=== PATIENT | male | born 1970 | race Caucasian/White ===

== ENCOUNTER 2017-06-24 07:35 | Emergency (ER) | payer BC ==
--- NOTE | 2017-06-24 09:34 | EDM.PDOC ---
ED HPI GENERAL MEDICAL PROBLEM - General Chief Complaint: Cardiovascular Problem Stated Complaint: RAPID HEART RATE Time Seen by Provider: 06/24/17 07:46 Source of Information: Reports: Patient, RN Notes Reviewed - History of Present Illness INITIAL COMMENTS - FREE TEXT/NARRATIVE: 7-year-old male has been sent over from cardiac stress lab for just going through the first part of his cardiac stress test this morning. Dr. Chang called over, his heart rate has been slow to come down still in the 120s resting. He would like to have him evaluated, appropriate labs checked. He was not having any chest pain or difficulty breathing. On arrival to ED continues pain-free. Heart rate now down to about 106-110. He does smoke. He has no known cardiac history. Is not diabetic. Not had anything to eat or drink at this morning so does feel somewhat dehydrated. He just had labs at the clinic here about a week ago. He is not aware of anything being abnormal. No recent cough fever chills vomiting or diarrhea. He has been having frequent palpitations this past several weeks and that is the reason for the current cardiac stress test. He feels like his heart "stops or skipping beats more frequent at night when trying to sleep. - Related Data Allergies Allergy/AdvReac Type Severity Reaction Status Date / Time No Known Allergies Allergy Verified 06/24/17 07:45 Home Meds: Home Meds Hydrochlorothiazide 25 mg PO DAILY 06/24/17 [History] LORazepam [Ativan] 1 mg PO QPM PRN 06/24/17 [History] PARoxetine [Paxil CR] 12.5 mg PO DAILY 06/24/17 [History] Pravastatin Sodium 10 mg PO DAILY 06/24/17 [History] Testosterone Cypionate [Testosterone Cypionate] 2 ml IM ASDIRECTED 06/24/17 [ History] Past Medical History HEENT History: Reports: Impaired Vision Cardiovascular History: Reports: High Cholesterol Gastrointestinal History: Reports: GERD - Past Surgical History HEENT Surgical History: Reports: Adenoidectomy Neurological Surgical History: Reports: Spinal Fusion Social & Family History - Tobacco Use Smoking Status *Q: Current Every Day Smoker Years of Tobacco use: 20 Packs/Tins Daily: 0.5 - Caffeine Use Caffeine Use: Reports: Coffee, Energy Drinks - Recreational Drug Use Recreational Drug Use: No ED ROS GENERAL - Review of Systems Review Of Systems: See Below Constitutional: Denies: Fever, Chills, Diaphoresis HEENT: Denies: Throat Pain, Throat Swelling Respiratory: Denies: Shortness of Breath, Pleuritic Chest Pain, Cough Cardiovascular: Reports: Palpitations. Denies: Chest Pain GI/Abdominal: Denies: Abdominal Pain, Diarrhea, Nausea, Vomiting Musculoskeletal: Denies: Neck Pain, Shoulder Pain, Arm Pain, Back Pain Skin: Reports: No Symptoms Neurological: Reports: Dizziness (Gone) ED EXAM, GENERAL - Physical Exam Exam: See Below General Appearance: Alert, No Apparent Distress Eye Exam: Bilateral Eye: PERRL Throat/Mouth: Normal Inspection, Normal Oropharynx Head: Atraumatic. No: Facial Swelling Neck: Supple, Full Range of Motion Respiratory/Chest: No Respiratory Distress, Lungs Clear, Normal Breath Sounds Cardiovascular: Regular Rate, Rhythm, Tachycardia, Other (Heart rate 105-107 at time of my initial exam, 113 on arrival to ED) GI/Abdominal: Soft, Non-Tender Back Exam: No: CVA Tenderness (L), CVA Tenderness (R) Extremities: Normal Inspection, Normal Range of Motion Neurological: Alert, Oriented, No Motor/Sensory Deficits Skin Exam: Warm, Dry, Normal Color Course - Vital Signs Last Recorded V/S: Last Vital Signs Temp 97.4 F 06/24/17 07:40 Pulse 113 H 06/24/17 07:40 Resp 13 06/24/17 07:40 BP 134/96 H 06/24/17 07:40 Pulse Ox 98 06/24/17 07:40 - Orders/Labs/Meds Orders: Active Orders 24 hr Category Date Time Status EKG 12 Lead [EKG Documentation Completion] [RC] STAT Care 06/24/17 07:47 Active Labs: Laboratory Tests 06/24/17 Range/Units 07:58 TSH 3rd Generation 1.500 (0.358-3.74) uIU/mL - Re-Assessments/Exams Free Text/Narrative Re-Assessment/Exam: 06/24/17 16:50. TSH came back normal. Heart rate continued to slow down. On reexam prior to discharge his heart rate was down into the 90s. He continued to have no chest discomfort whatsoever. I did not repeat other labs. He had labs done the clinic quite recently and mistreats were all normal. As described in history of present illness his recent symptomatology leading up to the cardiac stress exam was escalating palpitations, sensation of his heart skipping beats. During his stress test there were some PVCs noted. Not been seen those here in the ED. Not been having symptoms of that while here in the ED. He did feel up to going home at time of discharge. Discharge instructions as documented. Departure - Departure Time of Disposition: 09:30 Disposition: Home, Self-Care 01 Condition: Fair Clinical Impression: Palpitations, Sinus tachycardia Instructions: Sinus Tachycardia, Palpitations, [id number] Referrals: Kenna De La Cruz [facility] [Primary Care Provider] - Forms: ED Department Discharge Additional Instructions: Continue to drink plenty of water to get rehydrated, the extra beats and skipping of your heart that you are describing are called premature ventricular contractions. Your one cup of coffee in the morning should be fine but avoid further caffeine. Try eat a healthy diet, regular exercise program, try stop smoking. Try get plenty of rest at night as best you can. Start metoprolol 25 mg twice daily. That should reduce the frequency of the heart palpitations. Follow-up clinic in about 4-5 days for cardiac stress results, further treatment as needed. - My Orders Last 24 Hours: My Active Orders 06/24/17 07:47 EKG 12 Lead [EKG Documentation Completion] [RC] STAT - Assessment/Plan Last 24 Hours: My Active Orders 06/24/17 07:47 EKG 12 Lead [EKG Documentation Completion] [RC] STAT
== END 2017-06-24 09:45 | disposition home or self-care (01) ==
LOC: SUPCPDRO 07:35 → JD.ED 07:35
DX: R00.2 Palpitations (principal); R00.0 Tachycardia, unspecified; E78.00 Pure hypercholesterolemia, unspecified; K21.9 Gastro-esophageal reflux disease without esophagitis; F17.210 Nicotine dependence, cigarettes, uncomplicated; Z79.899 Other long term (current) drug therapy
CPT/HCPCS: 36415; 84443; 93005; 99284; 99285-25

== ENCOUNTER 2018-10-22 18:02 | Emergency (ER) | payer BC ==
[2018-10-22] MEDS ORDERED: Sodium Chloride 0.9% 1,000 ML IV ONE (18:41)
[2018-10-22] MEDS ORDERED: HYDROmorphone 0.5 MG/0.5 ML Syringe IVPUSH ONE ×2 (18:41→21:03)
[2018-10-22] MEDS ORDERED: Sodium Chloride 0.9% 10 ML Syringe FLUSH PRN (18:42)
--- NOTE | 2018-10-22 19:04 | EDM.PDOC ---
ED HPI GENERAL MEDICAL PROBLEM - General Chief Complaint: Abdominal Pain Stated Complaint: STOMACH PAIN Time Seen by Provider: 10/22/18 18:23 Source of Information: Reports: Patient History Limitations: Reports: No Limitations - History of Present Illness INITIAL COMMENTS - FREE TEXT/NARRATIVE: 48-year-old male presents for evaluation and treatment of left lower quadrant abdominal pain. Patient reports that this first started about a week ago. He states that it improved and now for the last day has return is worse than normal. He is reporting pain to the left lower quadrant. Currently rates the pain as a for 5 out of 10. He states that he did have some bright red blood in his stools earlier this week. He reports associated symptoms of feeling bloated and chills. He states his stomach "feels tight ". He denies any fevers, nausea, vomiting, diarrhea, lightheadedness, dizziness or syncope. He states that he has continued pass gas. States he has a history of diverticulitis but states this is worse than normal. Reports any movement seems to greatly exacerbate the pain. His last colonoscopy was in either April or May which showed diverticula. No previous surgeries to his abdomen. PCP is Dr. Gray. Left Lower Abdomen Pain Score (Numeric/FACES): 5 - Related Data Allergies Allergy/AdvReac Type Severity Reaction Status Date / Time No Known Allergies Allergy Verified 03/09/18 12:46 Home Meds: Home Meds Cholecalciferol (Vitamin D3) [Vitamin D3] 1,000 units PO DAILY 11/26/17 [History ] Cyanocobalamin (Vitamin B-12) [Vitamin B-12] 1,000 mcg PO DAILY 11/26/17 [ History] Hemp Oil 100 mg PO DAILY 11/26/17 [History] Magnesium Oxide [Magnesium] 400 mg PO ASDIRECTED 11/26/17 [History] Metoprolol Succinate 100 mg PO DAILY 11/26/17 [History] Potassium Chloride 20 meq PO DAILY 11/26/17 [History] Testosterone Cypionate [Depo-Testosterone] 2 ml IM ASDIRECTED 11/26/17 [History] hydroCHLOROthiazide [Hydrochlorothiazide] 25 mg PO DAILY 11/26/17 [History] rOPINIRole [Requip] 0.5 mg PO BEDTIME 11/26/17 [History] Pantoprazole [ProTONIX] 40 mg PO DAILY #30 tab.cr 11/28/17 [Rx] Acetaminophen/oxyCODONE [Percocet 325-5 MG] 1 tab PO Q4HR PRN #20 tab 10/22/18 [ Rx] Levofloxacin [Levaquin] 750 mg PO DAILY #10 tablet 10/22/18 [Rx] metroNIDAZOLE [Flagyl] 500 mg PO Q8H #30 tab 10/22/18 [Rx] Past Medical History HEENT History: Reports: Impaired Vision Cardiovascular History: Reports: High Cholesterol, Other (See Below) Other Cardiovascular History: PVC'S-freq. 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 Endocrine/Metabolic History: Reports: None Hematologic History: Reports: None Immunologic History: Reports: None Oncologic (Cancer) History: Reports: None Dermatologic History: Reports: None - Infectious Disease History Infectious Disease History: Reports: Chicken Pox - Past Surgical History HEENT Surgical History: Reports: Adenoidectomy Neurological Surgical History: Reports: Spinal Fusion Social & Family History - Family History Family Medical History: Noncontributory - Tobacco Use Smoking Status *Q: Current Every Day Smoker Years of Tobacco use: 20 Packs/Tins Daily: 1 - Caffeine Use Caffeine Use: Reports: Coffee Other Caffeine Use: cup of coffee and monster drink everyday - Recreational Drug Use Recreational Drug Use: No - Living Situation & Occupation Living situation: Reports: Occupation: Employed ED ROS GENERAL - Review of Systems Review Of Systems: See Below Constitutional: Reports: Chills. Denies: Fever GI/Abdominal: Reports: Abdominal Pain (LLQ), Bloody Stool. Denies: Diarrhea, Melena, Nausea, Vomiting : Reports: No Symptoms. Denies: Discharge ED EXAM, GI/ABD - Physical Exam Exam: See Below Exam Limited By: No Limitations General Appearance: Alert, WD/WN, Mild Distress, Obese Nose: Normal Inspection Throat/Mouth: Normal Inspection, Normal Voice Respiratory/Chest: No Respiratory Distress, Lungs Clear, Normal Breath Sounds Cardiovascular: Normal Peripheral Pulses, Regular Rate, Rhythm, No Murmur GI/Abdominal Exam: Guarding (LLQ), Rebound, Tender (LLQ), Other (hypoactive bowel sounds) Neurological: Alert, Oriented, Normal Cognition Psychiatric: Normal Affect, Normal Mood Skin Exam: Warm, Dry, Normal Color Course - Vital Signs Last Recorded V/S: Last Vital Signs Temp 98.0 F 10/22/18 18:17 Pulse 96 10/22/18 18:17 Resp 20 10/22/18 18:17 BP 131/102 H 10/22/18 18:17 Pulse Ox 97 10/22/18 18:17 - Orders/Labs/Meds Orders: Active Orders 24 hr Category Date Time Status Peripheral IV Care [RC] . DIRECTED Care 10/22/18 18:42 Active Peripheral IV Insertion Adult [OM.PC] Routine Oth 10/22/18 18:42 Ordered Labs: Laboratory Tests 10/22/18 10/22/18 10/22/18 Range/Units 18:45 18:45 20:23 WBC 9.29 H (4.23-9.07) K/mm3 RBC 5.39 (4.63-6.08) M/mm3 Hgb 17.5 D (13.7-17.5) gm/L Hct 48.3 (40.1-51.0) % MCV 89.6 (79.0-92.2) fl MCH 32.5 H (25.7-32.2) pg MCHC 36.2 H (32.2-35.5) g/dl RDW Std Deviation 42.0 (35.1-43.9) fL Plt Count 225 (163-337) K/mm3 MPV 10.3 (9.4-12.3) fl Neutrophils % (Manual) 53 (40-60) % Band Neutrophils % 0 (0-10) % Lymphocytes % (Manual) 39 (20-40) % Atypical Lymphs % 0 % Monocytes % (Manual) 6 (2-10) % Eosinophils % (Manual) 2 (0.8-7.0) % Basophils % (Manual) 0 L (0.2-1.2) Platelet Estimate Adequate RBC Morph Comment Normal Sodium 137 (136-145) mEq/L Potassium 3.4 L (3.5-5.1) mEq/L Chloride 100 (98-107) mEq/L Carbon Dioxide 26 (21-32) mEq/L Anion Gap 14.4 (5-15) BUN 18 (7-18) mg/dL Creatinine 1.2 (0.7-1.3) mg/dL Est Cr Clr Drug Dosing 76.10 mL/min Estimated GFR (MDRD) > 60 (>60) mL/min BUN/Creatinine Ratio 15.0 (14-18) Glucose 86 (74-106) mg/dL Calcium 9.8 (8.5-10.1) mg/dL Total Bilirubin 1.5 H (0.2-1.0) mg/dL AST 16 (15-37) U/L ALT 36 (16-63) U/L Alkaline Phosphatase 51 (46-116) U/L C-Reactive Protein < 0.2 (<1.0) mg/dL Total Protein 7.5 (6.4-8.2) g/dl Albumin 4.4 (3.4-5.0) g/dl Globulin 3.1 gm/dL Albumin/Globulin Ratio 1.4 (1-2) Urine Color Light yellow (Yellow) Urine Appearance Clear (Clear) Urine pH 7.0 (5.0-8.0) Ur Specific Haines 1.010 (1.005-1.030) Urine Protein Negative (Negative) Urine Glucose (UA) Negative (Negative) Urine Ketones Negative (Negative) Urine Occult Blood Trace-intact H (Negative) Urine Nitrite Negative (Negative) Urine Bilirubin Negative (Negative) Urine Urobilinogen 0.2 (0.2-1.0) Ur Leukocyte Esterase Negative (Negative) Urine RBC 0-5 (0-5) /hpf Urine WBC Not seen (0-5) /hpf Ur Epithelial Cells Not seen (0-5) /hpf Urine Bacteria Not seen (FEW) /hpf Urine Mucus Not seen (FEW) /hpf Meds: Medications Discontinued Medications Generic Name Dose Route Start Last Admin Trade Name Freq PRN Reason Stop Dose Admin Hydromorphone HCl 0.5 mg 10/22/18 18:41 10/22/18 18:53 Dilaudid IVPUSH 10/22/18 18:42 0.5 mg ONETIME ONE Administration Hydromorphone HCl 0.5 mg 10/22/18 21:03 10/22/18 21:14 Dilaudid IVPUSH 10/22/18 21:04 0.5 mg ONETIME ONE Administration Sodium Chloride 1,000 mls @ 999 mls/hr 10/22/18 18:41 10/22/18 18:52 Normal Saline IV 10/22/18 19:41 999 mls/hr ONETIME ONE Administration Iopamidol 100 ml 10/22/18 19:55 10/22/18 20:06 Isovue-300 (61%) IVPUSH 10/22/18 19:56 100 ml ONETIME ONE Administration Sodium Chloride 10 ml 10/22/18 18:42 10/22/18 18:54 Saline Flush FLUSH 10 ml ASDIRECTED PRN Administration Keep Vein Open - Radiology Interpretation Free Text/Narrative:: CT abdomen and pelvis Technique: Multiple axial sections were obtained from above the dome of the diaphragm inferiorly through the pubic symphysis. Intravenous and oral contrast was utilized. Delayed images were obtained through the bladder. Comparison: Previous CT abdomen and pelvis exam of 11/28/17. Findings: Mild inflammatory change is seen near the junction of the descending and sigmoid colon. Diverticuli are seen in this area and findings are felt compatible with diverticulitis. No fluid collections are seen to indicate abscess. Small portion of the visualized lung bases show nothing acute. Liver contains no focal abnormality. 2 small calcified gallstones are seen within the gallbladder. Spleen appears within normal limits. Adrenal glands show no nodule. Pancreas is within normal limits. Kidneys show symmetric contrast enhancement without hydronephrosis or mass. Aorta shows no aneurysm. No retroperitoneal adenopathy or mesenteric abnormalities are seen. No pelvic mass or adenopathy is seen. Delayed images shows contrast within the distal ureters and within the bladder. Bone window settings were reviewed which shows previous surgery at L4-5 and L5- S1. No acute osseous abnormality is appreciated. Impression: 1. Findings compatible with mild diverticulitis near the junction of the descending and sigmoid colon. No diverticular abscess is seen at this time. 2. 2 small calcified gallstones within the gallbladder. 3. Other incidental findings as noted above. - Re-Assessments/Exams Free Text/Narrative Re-Assessment/Exam: 10/22/18 21:07 Reviewed the labs and imaging with the patient. We'll start on Levaquin and Flagyl. Will prescribe pain medication. Discharge instructions as documented. Departure - Departure Time of Disposition: 21:08 Disposition: Home, Self-Care 01 Condition: Fair Clinical Impression: Diverticulitis of sigmoid colon - Discharge Information *PRESCRIPTION DRUG MONITORING PROGRAM REVIEWED*: No *COPY OF PRESCRIPTION DRUG MONITORING REPORT IN PATIENT CAITLIN: No Prescriptions: Acetaminophen/oxyCODONE [Percocet 325-5 MG] 1 tab PO Q4HR PRN #20 tab PRN Reason: Pain Levofloxacin [Levaquin] 750 mg PO DAILY #10 tablet metroNIDAZOLE [Flagyl] 500 mg PO Q8H #30 tab Instructions: Diverticulitis, [id number], Diverticulitis Referrals: Jesus Gray Jr, MD [Primary Care Provider] - Forms: ED Department Discharge Additional Instructions: you were given medication in the ER that can affect your ability to drive and operate machinery. Do not drive or operate machinery within 10 hours of taking prescription narcotic pain medication. Recommend clear fluids such as water, Gatorade or Powerade and bland diet. Maury diet recommendations include bananas, egg whites, bread, rice, applesauce , toast,soup broth, etc Follow-up with Dr. Gray next week for recheck of your symptoms. Take the Flagyl and Levaquin as prescribed. Levaquin 1 tab daily. Flagyl 1 tab 3 times a day for 10 days. Percocet 1-2 tabs every 4-6 hours as needed for pain. Percocet is habit-forming , take as few of these as needed to control your pain. Do not drive or operate machinery within 10 hours of taking Percocet. Please return to the ER if your symptoms change or worsen. - My Orders Last 24 Hours: My Active Orders 10/22/18 18:42 Peripheral IV Care [RC] . DIRECTED Peripheral IV Insertion Adult [OM.PC] Routine - Assessment/Plan Last 24 Hours: My Active Orders 10/22/18 18:42 Peripheral IV Care [RC] . DIRECTED Peripheral IV Insertion Adult [OM.PC] Routine
[2018-10-22] MEDS ORDERED: Iopamidol 612 MG/ML 100 ML Bottle IVPUSH ONE (19:55)
--- NOTE | 2018-10-22 20:28 | CT ---
CT abdomen and pelvis Technique: Multiple axial sections were obtained from above the dome of the diaphragm inferiorly through the pubic symphysis. Intravenous and oral contrast was utilized. Delayed images were obtained through the bladder. Comparison: Previous CT abdomen and pelvis exam of 11/28/17. Findings: Mild inflammatory change is seen near the junction of the descending and sigmoid colon. Diverticuli are seen in this area and findings are felt compatible with diverticulitis. No fluid collections are seen to indicate abscess. Small portion of the visualized lung bases show nothing acute. Liver contains no focal abnormality. 2 small calcified gallstones are seen within the gallbladder. Spleen appears within normal limits. Adrenal glands show no nodule. Pancreas is within normal limits. Kidneys show symmetric contrast enhancement without hydronephrosis or mass. Aorta shows no aneurysm. No retroperitoneal adenopathy or mesenteric abnormalities are seen. No pelvic mass or adenopathy is seen. Delayed images shows contrast within the distal ureters and within the bladder. Bone window settings were reviewed which shows previous surgery at L4-5 and L5-S1. No acute osseous abnormality is appreciated. Impression: 1. Findings compatible with mild diverticulitis near the junction of the descending and sigmoid colon. No diverticular abscess is seen at this time. 2. 2 small calcified gallstones within the gallbladder. 3. Other incidental findings as noted above. Diagnostic code #3
== END 2018-10-22 21:35 | disposition home or self-care (01) ==
LOC: JD.ED 18:02
DX: K57.32 Diverticulitis of large intestine without perforation or abscess without bleeding (principal); F17.210 Nicotine dependence, cigarettes, uncomplicated; E78.00 Pure hypercholesterolemia, unspecified; K21.9 Gastro-esophageal reflux disease without esophagitis; F41.9 Anxiety disorder, unspecified; F32.9 Major depressive disorder, single episode, unspecified; Z79.899 Other long term (current) drug therapy
CPT/HCPCS: 36415; 74177; 80053; 81001; 85007; 85027; 86140; 96361; 96374; 96376; 99284; J1170; J7040; Q9967

== ENCOUNTER 2019-01-21 17:58 | Emergency (ER) | payer BC ==
[2019-01-21] MEDS ORDERED: Sodium Chloride 0.9% 10 ML Syringe FLUSH PRN (18:56)
[2019-01-21] MEDS ORDERED: Iopamidol 612 MG/ML 100 ML Bottle IVPUSH ONE (22:32)
--- NOTE | 2019-01-21 23:15 | EDM.PDOC ---
ED HPI GENERAL MEDICAL PROBLEM - General Chief Complaint: Gastrointestinal Problem Stated Complaint: BOWEL ISSUES Time Seen by Provider: 01/21/19 18:40 Source of Information: Reports: Patient History Limitations: Reports: No Limitations - History of Present Illness INITIAL COMMENTS - FREE TEXT/NARRATIVE: 48-year-old male presents for evaluation and treatment of abdominal pain, bloating and constipation. Patient reports that he had a partial colectomy with Dr. Robertson in [place] on December 03. He has followed up with his mid-level provider. Since the surgery he reports he is having significant constipation. He reports significant bloating and decreased flatus. He describes the pain as a pressure. He has been nauseous. States he gets short of breath due to all the distention. He denies any fevers, chills or any vomiting. His last bowel movement was a couple of hours ago. He states that he has maybe about tablespoon of stool. States that it was "rabbit turds ", Was very hard. No blood appreciated in his stools that he has appreciated. He has been using multiple [id number] medications including milk of magnesia, Metamucil, Dulcolax and MiraLAX. He states he needs to take these significant amount of constipation medications in order to have a bowel movement. Reports that he had a partial colectomy of the descending colon on December 03. States about 8 inches of his bowel was removed. This was due to chronic diverticulitis. Primary care providers Dr. Gray. - Related Data Allergies Allergy/AdvReac Type Severity Reaction Status Date / Time No Known Allergies Allergy Verified 01/21/19 18:26 Home Meds: Home Meds Cholecalciferol (Vitamin D3) [Vitamin D3] 1,000 units PO DAILY 11/26/17 [History ] Cyanocobalamin (Vitamin B-12) [Vitamin B-12] 1,000 mcg PO DAILY 11/26/17 [ History] Hemp Oil 100 mg PO DAILY 11/26/17 [History] Magnesium Oxide [Magnesium] 400 mg PO ASDIRECTED 11/26/17 [History] Metoprolol Succinate 100 mg PO DAILY 11/26/17 [History] Potassium Chloride 20 meq PO DAILY 11/26/17 [History] Testosterone Cypionate [Depo-Testosterone] 2 ml IM ASDIRECTED 11/26/17 [History] hydroCHLOROthiazide [Hydrochlorothiazide] 25 mg PO DAILY 11/26/17 [History] rOPINIRole [Requip] 0.5 mg PO BEDTIME 11/26/17 [History] Pantoprazole [ProTONIX] 40 mg PO DAILY #30 tab.cr 11/28/17 [Rx] Acetaminophen/oxyCODONE [Percocet 325-5 MG] 1 tab PO Q4HR PRN #20 tab 10/22/18 [ Rx] Levofloxacin [Levaquin] 750 mg PO DAILY #10 tablet 10/22/18 [Rx] metroNIDAZOLE [Flagyl] 500 mg PO Q8H #30 tab 10/22/18 [Rx] Past Medical History HEENT History: Reports: Impaired Vision Cardiovascular History: Reports: High Cholesterol, Other (See Below) Other Cardiovascular History: PVC'S-freq. 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 Endocrine/Metabolic History: Reports: None Hematologic History: Reports: None Immunologic History: Reports: None Oncologic (Cancer) History: Reports: None Dermatologic History: Reports: None - Infectious Disease History Infectious Disease History: Reports: Chicken Pox - Past Surgical History HEENT Surgical History: Reports: Adenoidectomy GI Surgical History: Reports: Other (See Below) Other GI Surgeries/Procedures: colon resection Neurological Surgical History: Reports: Spinal Fusion Social & Family History - Family History Family Medical History: Noncontributory - Tobacco Use Smoking Status *Q: Current Every Day Smoker Years of Tobacco use: 20 Packs/Tins Daily: 0.5 - Caffeine Use Caffeine Use: Reports: Coffee Other Caffeine Use: cup of coffee and monster drink everyday - Recreational Drug Use Recreational Drug Use: No - Living Situation & Occupation Living situation: Reports: Occupation: Employed ED ROS GENERAL - Review of Systems Review Of Systems: See Below Constitutional: Denies: Fever, Chills Respiratory: Reports: Shortness of Breath (from abdominal distention) GI/Abdominal: Reports: Abdominal Pain, Constipation, Distension, Nausea. Denies : Flatus (decreased), Hematochezia, Melena, Vomiting : Reports: No Symptoms ED EXAM, GI/ABD - Physical Exam Exam: See Below Exam Limited By: No Limitations General Appearance: Alert, WD/WN, Mild Distress, Obese Ears: Normal External Exam Nose: Normal Inspection Throat/Mouth: Normal Inspection, Normal Lips, Normal Oropharynx, Normal Voice, No Airway Compromise Respiratory/Chest: No Respiratory Distress, Lungs Clear, Normal Breath Sounds Cardiovascular: Normal Peripheral Pulses, Regular Rate, Rhythm, No Murmur GI/Abdominal Exam: Distended, Guarding, Rigid, Tender (generalized), Abnormal Bowel Sounds (decreased) Neurological: Alert, Oriented, Normal Cognition Psychiatric: Normal Affect, Normal Mood Skin Exam: Warm, Dry, Normal Color Course - Vital Signs Last Recorded V/S: Last Vital Signs Temp 98.2 F 01/21/19 18:20 Pulse 80 01/21/19 18:20 Resp 18 01/21/19 18:20 BP 160/98 H 01/21/19 18:20 Pulse Ox 98 01/21/19 18:20 - Orders/Labs/Meds Labs: Laboratory Tests 01/21/19 01/21/19 Range/Units 19:35 19:35 WBC 7.13 (4.23-9.07) K/mm3 RBC 4.96 (4.63-6.08) M/mm3 Hgb 16.1 (13.7-17.5) gm/dl Hct 44.0 (40.1-51.0) % MCV 88.7 (79.0-92.2) fl MCH 32.5 H (25.7-32.2) pg MCHC 36.6 H (32.2-35.5) g/dl RDW Std Deviation 39.1 (35.1-43.9) fL Plt Count 215 (163-337) K/mm3 MPV 10.3 (9.4-12.3) fl Neut % (Auto) 44.5 (34.0-67.9) % Lymph % (Auto) 44.5 (21.8-53.1) % Edwards % (Auto) 8.1 (5.3-12.2) % Eos % (Auto) 2.1 (0.8-7.0) Baso % (Auto) 0.7 (0.1-1.2) % Neut # (Auto) 3.17 (1.78-5.38) K/mm3 Lymph # (Auto) 3.17 (1.32-3.57) K/mm3 Edwards # (Auto) 0.58 (0.30-0.82) K/mm3 Eos # (Auto) 0.15 (0.04-0.54) K/mm3 Baso # (Auto) 0.05 (0.01-0.08) K/mm3 Manual Slide Review Normal smear Sodium 138 (136-145) mEq/L Potassium 3.9 (3.5-5.1) mEq/L Chloride 102 (98-107) mEq/L Carbon Dioxide 24 (21-32) mEq/L Anion Gap 15.9 H (5-15) BUN 22 H (7-18) mg/dL Creatinine 1.0 (0.7-1.3) mg/dL Est Cr Clr Drug Dosing 91.32 mL/min Estimated GFR (MDRD) > 60 (>60) mL/min BUN/Creatinine Ratio 22.0 H (14-18) Glucose 84 (74-106) mg/dL Calcium 9.7 (8.5-10.1) mg/dL Total Bilirubin 1.2 H (0.2-1.0) mg/dL AST 18 (15-37) U/L ALT 39 (16-63) U/L Alkaline Phosphatase 58 (46-116) U/L C-Reactive Protein < 0.2 (<1.0) mg/dL Total Protein 7.8 (6.4-8.2) g/dl Albumin 4.7 (3.4-5.0) g/dl Globulin 3.1 gm/dL Albumin/Globulin Ratio 1.5 (1-2) Lipase 67 L (73-393) U/L Meds: Medications Discontinued Medications Generic Name Dose Route Start Last Admin Trade Name Freq PRN Reason Stop Dose Admin Iopamidol 100 ml 01/21/19 22:32 01/21/19 22:33 Isovue-300 (61%) IVPUSH 01/21/19 22:33 100 ml ONETIME ONE Administration Sodium Chloride 10 ml 01/21/19 18:56 01/21/19 20:38 Saline Flush FLUSH 10 ml ASDIRECTED PRN Administration Keep Vein Open - Radiology Interpretation Free Text/Narrative:: flat and upright abdominal xrays show few scattered air fluids lines but no intestinal distention, formal radiology read pending. CT of the abdomen and pelvis with IV and oral contrast impression per vrad: cholelithiasis. No acute findings. - Re-Assessments/Exams Free Text/Narrative Re-Assessment/Exam: 01/21/19 23:12 I reviewed the labs and imaging with the patient. Low suspicion for obstruction. air fluid lines felt to be normal gas pattern. However, given his symptoms and the xray decided to proceed with CT which shows nothing acute. Recommendations for constipation. Instructed to follow-up with GI. Discharge instructions as documented. Departure - Departure Time of Disposition: 23:13 Disposition: Home, Self-Care 01 Condition: Fair Clinical Impression: Constipation by delayed colonic transit - Discharge Information *PRESCRIPTION DRUG MONITORING PROGRAM REVIEWED*: No *COPY OF PRESCRIPTION DRUG MONITORING REPORT IN PATIENT CAITLIN: No Instructions: Constipation, Adult, [id number] Referrals: Jesus Gray Jr, MD [Primary Care Provider] - Quintin Rojas MD [Ordering Only Provider] - Forms: ED Department Discharge Additional Instructions: Recommend decreasing your fiber intake. Make sure you are drinking plenty of fluids. Exercise. Follow-up with your surgeon for further direction with managing your constipation. Recommend using miralax. Please return to the ER should your symptoms change or worsen.
--- NOTE | 2019-01-23 13:46 | CR ---
Abdomen: Supine and upright views of the abdomen were obtained. Comparison: No previous abdominal x-ray. Previous lumbar spine surgery is noted. Bowel gas pattern appears within normal limits. No abnormal calcifications or soft tissue abnormality is seen. Impression: 1. Previous lumbar spine surgery. Nothing acute is seen on two-view abdominal x-ray. Diagnostic code #2
--- NOTE | 2019-01-23 13:46 | CT ---
CT abdomen and pelvis Technique: Multiple axial sections were obtained from above the dome of the diaphragm inferiorly through the pubic symphysis. Intravenous and oral contrast was utilized. Delayed images were also obtained through the bladder. Comparison: Prior CT abdomen and pelvis exam of 10/22/18. Findings: Small portion of the visualized lung bases show nothing acute. Liver shows fatty infiltration. Focal areas of increased density are noted within the right lobe of the liver believed to represent normal enhancement variant. No focal abnormality is otherwise seen within the liver. Several gallstones are seen within the gallbladder. Spleen appears within normal limits. Pancreas is within normal limits. Adrenal glands show no nodule. Kidneys show symmetric contrast enhancement without hydronephrosis or mass. Aorta shows no aneurysm. No retroperitoneal adenopathy or mesenteric abnormalities are seen. Anastomotic sutures are noted within the sigmoid colon. No bowel dilatation is seen. Appendix is seen and is normal in size. Delayed images show contrast within the distal ureters and within the bladder. Previous lower lumbar spine surgery is noted. Impression: 1. Several gallstones. 2. Other findings as noted above. Nothing acute is appreciated on CT study of the abdomen and pelvis. Diagnostic code #3 I agree with preliminary report from [facility], finalized on 01/21/19, 11:51 PM Central Time
== END 2019-01-21 23:21 | disposition home or self-care (01) ==
LOC: JD.ED 17:58
DX: K59.01 Slow transit constipation (principal); K21.9 Gastro-esophageal reflux disease without esophagitis; F41.9 Anxiety disorder, unspecified; F32.9 Major depressive disorder, single episode, unspecified; F17.210 Nicotine dependence, cigarettes, uncomplicated; Z98.890 Other specified postprocedural states; Z79.899 Other long term (current) drug therapy
CPT/HCPCS: 36415; 74019; 74177; 80053; 83690; 85025; 86140; 99284; Q9967; 99283

== ENCOUNTER 2021-10-27 10:21 | Emergency (ER) | payer OTHER | END 2021-10-27 12:43 | disposition home or self-care (01) | LOC: JD.ED 10:21 | DX: S96.912A Strain of unspecified muscle and tendon at ankle and foot level, left foot, initial encounter (principal); E78.00 Pure hypercholesterolemia, unspecified; K21.9 Gastro-esophageal reflux disease without esophagitis; F17.210 Nicotine dependence, cigarettes, uncomplicated; Z79.899 Other long term (current) drug therapy; X50.0XXA Overexertion from strenuous movement or load, initial encounter; Y99.0 Civilian activity done for income or pay | CPT/HCPCS: 73610-26-LT; 73610-LT; 99283 ==

== ENCOUNTER 2023-01-08 15:20 | Emergency (ER) | payer BC, OTHER ==
[2023-01-08] MEDS ORDERED: Sodium Chloride 0.9% 1,000 ML IV ONE (15:47)
[2023-01-08] MEDS ORDERED: Ondansetron 4 MG/2 ML SDV IVPUSH ONE (15:47)
[2023-01-08] MEDS ORDERED: Sodium Chloride 0.9% 10 ML Syringe FLUSH PRN (15:47)
[2023-01-08] MEDS ORDERED: Iopamidol 612 MG/ML 30 ML SDV IVPUSH ONE (16:01)
[2023-01-08] MEDS ORDERED: Sodium Chloride 0.9% 10 ML Syringe FLUSH ONE (16:01)
[2023-01-08 16:16] LABS: APPEARANCE,URINE CLEAR (Clear); BILIRUBIN,URINE NEGATIVE (Negative); COLOR,URINE YELLOW (Yellow); GLUCOSE,URINE NEGATIVE (Negative); KETONES,URINE NEGATIVE (Negative); LEUKOCYTE ESTERASE,URINE NEGATIVE (Negative); NITRITE,URINE NEGATIVE (Negative); OCCULT BLOOD,URINE 1+ (Negative); PROTEIN,URINE NEGATIVE (Negative); UROBILINOGEN,URINE 0.2 (0.2-1.0)
[2023-01-08 16:19] LABS: BASOPHILS ABSOLUTE AUTO 0.1 K/mm3 (0.0-0.2); BASOPHILS PERCENT AUTO 0.7 % (0.0-1.0); EOSINOPHILS PERCENT AUTO 0.5 % (0.0-6.0); HEMATOCRIT 47.3 % (42.0-52.0); HEMOGLOBIN 16.8 gm/dl (14.0-18.0); IMMATURE GRAN ABSOLUTE AUTO 0.02 K/mm3 (0.00-0.05); IMMATURE GRAN PERCENT AUTO 0.3 % (0.0-0.4); LYMPHOCYTES ABSOLUTE AUTO 2.3 K/mm3 (1.0-4.8); LYMPHOCYTES PERCENT AUTO 30.4 % (24.0-44.0); MEAN CORPUSCULAR HEMOGLOBIN 33.7 pg (28.0-32.0); MEAN CORPUSCULAR HGB CONC 35.5 g/dl (32.0-36.0); MEAN PLATELET VOLUME 9.6 fl (9.4-12.4); MONOCYTES ABSOLUTE AUTO 0.5 K/mm3 (0.0-0.8); MONOCYTES PERCENT AUTO 7.2 % (0.0-8.0); NEUTROPHILS ABSOLUTE AUTO 4.6 K/mm3 (1.8-7.7); NEUTROPHILS PERCENT AUTO 60.9 % (41.0-71.0); PLATELET COUNT,PLT 223 K/mm3 (150-400); RED BLOOD CELL COUNT 4.98 M/mm3 (4.52-5.90); WHITE BLOOD CELL COUNT,WBC 7.49 K/mm3 (3.9-11.3)
[2023-01-08 16:34] LABS: A/G RATIO 1.4 (1-2); ALANINE AMINOTRANSFERASE,ALT 41 U/L (16-63); ALBUMIN 4.6 g/dl (3.4-5.0); ALKALINE PHOSPHATASE 51 U/L (46-116); ANION GAP 11.9 (5-15); ASPARTATE AMNIOTRANSFERASE,AST 18 U/L (15-37); BLOOD UREA NITROGEN,BUN 21 mg/dL (7-18); BUN/CREATININE RATIO 17.5 (14-18); C-REACTIVE PROTEIN <0.2 mg/dL (<1.0); CALCIUM 9.6 mg/dL (8.5-10.1); CARBON DIOXIDE,CO2 30 mEq/L (21-32); CHLORIDE,CL 102 mEq/L (98-107); CREATININE 1.2 mg/dL (0.7-1.3); EST CRCL DRUG DOSING (CG) 70.46 mL/min; ESTIMATED GFR 73 mL/min (>60); GLUCOSE RANDOM 91 mg/dL (70-99); LIPASE 41 U/L (73-393); MAGNESIUM 2.1 mg/dL (1.8-2.4); POTASSIUM,K 3.9 mEq/L (3.5-5.1); SODIUM,NA 140 mEq/L (136-145)
[2023-01-08 16:39] LABS: BACTERIA,URINE RARE /hpf (FEW); MUCUS,URINE NOT SEEN /hpf (FEW); RBC,URINE 0-5 /hpf (0-5); SQUAMOUS EPITHELIAL CELLS,UR NOT SEEN /hpf (0-5); WBC,URINE 0-5 /hpf (0-5)
[2023-01-08] MEDS ORDERED: Dicyclomine 10 MG Cap PO ONE (17:30)
== END 2023-01-08 17:50 | disposition home or self-care (01) ==
LOC: JD.ED 15:20
DX: R10.32 Left lower quadrant pain (principal); K92.1 Melena; E78.00 Pure hypercholesterolemia, unspecified; K21.9 Gastro-esophageal reflux disease without esophagitis; Z79.899 Other long term (current) drug therapy
CPT/HCPCS: 36415; 74177; 80053; 81001; 83690; 83735; 85025; 86140; 96361; 96374; 99284; A9270; J2405; J3490; J7030; Q9967

== ENCOUNTER 2024-08-03 09:38 | Day surgery (SDC) | payer BC ==
[~2024-08-03 09:38] MED LIST: Sodium Chloride 0.9% 10 ML Syringe FLUSH PRN; Sodium Chloride 0.9% 10 ML Syringe FLUSH SCH
[2024-08-03] MEDS: Lactated Ringers 1,000 ML IV SCH (10:15)
[2024-08-03] MEDS ORDERED: Propofol 200 MG/20 ML SDV ONE ×4 (10:36→12:04)
== END 2024-08-03 13:05 | disposition home or self-care (01) ==
LOC: JD.SDS 09:38
PROVIDERS: ATTEND Surgery
DX: K21.00 Gastro-esophageal reflux disease with esophagitis, without bleeding (principal); K44.9 Diaphragmatic hernia without obstruction or gangrene; K57.30 Diverticulosis of large intestine without perforation or abscess without bleeding; K59.09 Other constipation; M62.08 Separation of muscle (nontraumatic), other site; K42.9 Umbilical hernia without obstruction or gangrene; I10 Essential (primary) hypertension; E78.5 Hyperlipidemia, unspecified; F41.9 Anxiety disorder, unspecified; F32.A Depression, unspecified; Z87.891 Personal history of nicotine dependence; Z79.899 Other long term (current) drug therapy
CPT/HCPCS: 43239; 45380; J2704; J7120; 00813